=== PATIENT | female | born 1965 | race Caucasian/White ===

== ENCOUNTER 2025-07-03 15:01 | Inpatient (IN) | payer MEDICARE, SELFPAY ==
[2025-07-03] VITALS (16 sets, daily range): BP systolic 134–202; BP diastolic 68–108; PULSE 61–95; RESP 18; TEMP 36.6; O2SAT 91–99; BMI 35.4
--- NOTE | 2025-07-03 15:25 | EKG_ITS ---
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
[2025-07-03 15:47] LABS: Add Manual Diff / Slide Review NO; Hematocrit 42.6 % (36-46); Hemoglobin 15.2 g/dL (12.0-16.0); Lymphocytes Absolute Auto 1900 /uL (1100-4500); Mean Corpuscular HGB Conc 35.5 % (30-36); Mean Corpuscular Hemoglobin 32.9 PG (26-34); Mean Corpuscular Volume 92.6 fL (80-100); Platelet Count 285 X10^3/uL (150-400)
[2025-07-03 15:49] LABS: Alanine Aminotransferase 153 IU/L (<35); Albumin 4.6 g/dL (3.5-5.0); Albumin Globulin Ratio 1.4 (1.0-2.8); Alkaline Phosphatase 93 U/L (38-126); Blood Urea Nitrogen 12 mg/dL (7-17); Calcium 9.6 mg/dL (8.4-10.2); Carbon Dioxide 28 mmol/L (22-32); Chloride 106 mmol/L (98-107); Estimated Glomerular Filt Rate > 60 mL/min (>60); Globulin 3.3 g/dL (1.7-4.1); Glucose 103 mg/dL (70-99); HEMOLYSIS < 15 (0-50); Lipase 71 U/L (23-300); Potassium 3.8 mmol/L (3.4-5.1); Sodium 142 mmol/L (137-145); Total Protein 7.9 g/dL (6.3-8.2)
--- NOTE | 2025-07-03 16:16 | DI.CT.S_ITS ---
PROCEDURE: CT ABDOMEN PELVIS W CON INDICATIONS: abd pain TECHNIQUE: After the administration of intravenous contrast, axial sections acquired from the lung bases to the pubic symphysis. Coronal and sagittal reformats were performed. For radiation dose reduction, the following was used: automated exposure control, adjustment of mA and/or kV according to patient size. COMPARISON: None. FINDINGS: Image quality: Diagnostic. Lower Chest: No significant findings. ABDOMEN: Liver: No solid mass. Gallbladder: Cholelithiasis without wall thickening or adjacent fat stranding to suggest acute cholecystitis. Biliary ducts: No biliary dilation. Pancreas: No ductal dilation. Spleen: Size is within normal limits. Adrenal Glands: No adrenal nodules. Kidneys and Ureters: No hydronephrosis. No solid mass. No complex renal cystic lesion which requires follow up. Stomach and Bowel: There is a duodenal ulcer at the duodenal bulb, with likely very early micro perforation (series 2, image 47). The ulcer measures 1.5 centimeters in length. Adjacent fat stranding is present. Peritoneum: No abnormal intraperitoneal fluid. No free air. Ventral Wall: No significant ventral hernia. Abdominal Nodes: No retroperitoneal or mesenteric adenopathy by size criteria. Vessels: Aorta and inferior vena cava are normal in size. PELVIS: Pelvic Organs: Unremarkable. Bladder: No bladder wall thickening, accounting for underdistention. Pelvic Nodes: No enlarged lymph nodes. Miscellaneous: No inguinal hernias are seen. Bones: No aggressive osseous abnormality. IMPRESSION: 1.5 centimeter duodenal bulb ulcer with evidence of early micro perforation. Adjacent fat stranding is present. Cholelithiasis without wall thickening or adjacent fat stranding to suggest acute cholecystitis. Dictated by: Elias Quintana M.D. on 07/03/2025 at 15:38 Approved by: Elias Quintana M.D. on 07/03/2025 at 15:40
[2025-07-03] MEDS: KETOROLAC 30 MG/ML VIAL 15 MG IV (17:03)
[2025-07-03] MEDS: LACTATED RINGERS 1,000 ML 1000 ML IV (17:04)
[2025-07-03] MEDS: ONDANSETRON 4 MG/2 ML INJ IV (17:04)
--- NOTE | 2025-07-03 17:06 | ED.ABDPAIN ---
HPI - Abdominal Pain General Chief Complaint: Abdominal Pain Stated Complaint: mid/right abdomen pain Time Seen by Provider: 07/03/25 16:16 Source: patient Mode of arrival: Ambulatory History of Present Illness HPI narrative: 59-year-old female presents with epigastric pain radiating to the back worse in the past day but started about 2 weeks ago. Patient patient recently started on meloxicam for potential knee surgery. Patient denies chest pain, fever, chills, rectal bleeding, diarrhea, constipation, urinary complaints, shortness breath, cough, sore throat. Other than what is stated 14 point review of system is negative. Related Data Home Medications ?Medication ?Instructions ?Recorded ?Confirmed cetirizine 10 mg chewable tablet 10 mg PO DAILY 03/18/25 05/04/25 gabapentin 300 mg capsule 1,200 mg PO BID 03/18/25 05/04/25 Previous Rx's ?Medication ?Instructions ?Recorded meloxicam 15 mg tablet 15 mg PO DAILY #90 tabs 05/04/25 Allergies Allergy/AdvReac Type Severity Reaction Status Date / Time cephalexin Allergy Intermediate Nausea Verified 05/04/25 15:03 oxycodone Allergy Intermediate ITCHING Verified 05/04/25 15:03 Sulfa (Sulfonamide Allergy Intermediate Hives Verified 05/04/25 15:03 Antibiotics) sertraline Allergy Mild Insomnia Verified 05/04/25 15:03 Review of Systems Review of Systems ROS Unobtainable: All systems reviewed & are unremarkable except as noted in HPI and below Patient History Social History Smoking Status: Never smoker Smoking Status: Never smoker Exam Narrative Exam Narrative: GENERAL: [59] year old patient appears stated age. Well-developed patient, in mild distress. HEAD: Atraumatic. Normocephalic. EYES: Pupils equal round and reactive. Extraocular motions intact. No scleral icterus. No injection or drainage. ENT: Nose without bleeding, purulent drainage. Throat without erythema, tonsillar hypertrophy or exudate. Airway patent. NECK: Trachea midline. Non tender CARDIOVASCULAR: Regular rate and rhythm without murmurs, gallops, or rubs. RESPIRATORY: Clear to auscultation. Breath sounds equal bilaterally. No wheezes, rales, or rhonchi. GASTROINTESTINAL: Abdomen soft, epigastric TTP no r/r/g, nondistended. EXTREMITIES: No edema or joint tenderness. BACK: Nontender without deformity or crepitance. No flank tenderness. NEURO: AOx3. SKIN: No rash or erythema of visible areas Initial Vital Signs Initial Vital Signs: Vital Signs Temperature 97.8 F 07/03/25 15:06 Pulse Rate 71 07/03/25 15:06 Respiratory Rate 18 07/03/25 15:06 Blood Pressure 137/72 07/03/25 15:06 Pulse Oximetry 99 07/03/25 15:06 Oxygen Delivery Method Room Air 07/03/25 15:06 Course Orders Ordered: ED Orders 07/03/25 15:25 Complete Blood Count AUTO DIFF Stat Comprehensive Metabolic Panel Stat Lipase Stat EKG-12 Lead Stat 07/03/25 16:16 CT abdomen pelvis w con Stat Lactated Ringer's (Lactated Ringers) 1,000 mls @ 1,000 mls/hr IV BOLUS ONE Stop: 07/03/25 17:16 Last Admin: 07/03/25 17:04 Dose: 1,000 mls/hr Documented By: ROHITH Ondansetron HCl (Ondansetron 4 Mg/2 Ml Inj) 4 mg IV NOW PRN PRN Reason: Nausea And Vomiting Last Admin: 07/03/25 17:04 Dose: 4 mg Documented By: ROHITH Ondansetron HCl (Ondansetron 4 Mg Odt) 4 mg PO NOW PRN PRN Reason: Nausea And Vomiting Discontinued Medications Ketorolac Tromethamine (Ketorolac 30 Mg/Ml Vial) 15 mg IV NOW ONE Stop: 07/03/25 16:18 Last Admin: 07/03/25 17:03 Dose: 15 mg Documented By: ROHITH Vital Signs Vital signs: Vital Signs - 8 hr 07/03/25 15:06 Temperature 97.8 F Pulse Rate 71 Respiratory Rate 18 Blood Pressure 137/72 Pulse Oximetry 99 Oxygen Delivery Method Room Air MDM - Abdominal Pain Lab Data 07/03/25 15:25 07/03/25 15:25 Labs: Lab Results 07/03/25 Range/Units 15:25 WBC 6.7 (4.5-11.0) X10^3/uL RBC 4.61 (4.0-5.2) X10^6/uL Hgb 15.2 (12.0-16.0) g/dL Hct 42.6 (36-46) % MCV 92.6 (80-100) fL MCH 32.9 (26-34) PG MCHC 35.5 (30-36) % RDW 12.5 (11.6-14.8) % Plt Count 285 (150-400) X10^3/uL Neut % (Auto) 60.7 (50-75) % Lymph % (Auto) 28.4 (25-40) % [place] % (Auto) 6.1 (3-14) % Eos % (Auto) 3.7 (2-4) % Baso % (Auto) 1.1 (0-2) % Neut # (Auto) 4100 (7488-6252) /uL Lymph # (Auto) 1900 (8511-4938) /uL [place] # (Auto) 400 (0-900) /uL Eos # (Auto) 200 (0-450) /uL Baso # (Auto) 100 (0-100) /uL Sodium 142 (137-145) mmol/L Potassium 3.8 (3.4-5.1) mmol/L Chloride 106 (98-107) mmol/L Carbon Dioxide 28 (22-32) mmol/L BUN 12 (7-17) mg/dL Creatinine 0.71 (0.52-1.04) mg/dL Estimated GFR > 60 (>60) mL/min BUN/Creatinine Ratio 16.9 (6-22) Glucose 103 H (70-99) mg/dL Calcium 9.6 (8.4-10.2) mg/dL Total Bilirubin 0.7 (0.2-1.3) mg/dL AST 79 H (14-36) IU/L ALT 153 H (<35) IU/L Alkaline Phosphatase 93 (38-126) U/L Total Protein 7.9 (6.3-8.2) g/dL Albumin 4.6 (3.5-5.0) g/dL Globulin 3.3 (1.7-4.1) g/dL Albumin/Globulin Ratio 1.4 (1.0-2.8) Lipase 71 (23-300) U/L Point of care testing: Urine Dip Bedside Urine Glucose Negative Bedside Urine Bilirubin - Negative Bedside Urine Ketone - Negative Urine Specific [place] 1.005 Bedside Urine Occult Blood - Negative Bedside Urine pH 7.0 Bedside Urine Protein - Negative Bedside Urine Urobilinogen - Negative Bedside Urine Nitrite - Negative Bedside Urine Leukocytes - Negative Esterase Imaging Data CT scan - abdomen/pelvis: Radiologist's Impression: [address] [place] [id number] Scan Report Signed Patient: Asya Parrish MR#: [id number] : 1965 Acct:[id number] Age/Sex: 59 / F Date of Service: 07/03/25 Loc: ED Accession Number: [id number] Procedure: CT abdomen pelvis w con Ordering Provider: Matt Loomis D.O. PROCEDURE: CT ABDOMEN PELVIS W CON INDICATIONS: abd pain TECHNIQUE: After the administration of intravenous contrast, axial sections acquired from the lung bases to the pubic symphysis. Coronal and sagittal reformats were performed. For radiation dose reduction, the following was used: automated exposure control, adjustment of mA and/or kV according to patient size. COMPARISON: None. FINDINGS: Image quality: Diagnostic. Lower Chest: No significant findings. ABDOMEN: Liver: No solid mass. Gallbladder: Cholelithiasis without wall thickening or adjacent fat stranding to suggest acute cholecystitis. Biliary ducts: No biliary dilation. Pancreas: No ductal dilation. Spleen: Size is within normal limits. Adrenal Glands: No adrenal nodules. Kidneys and Ureters: No hydronephrosis. No solid mass. No complex renal cystic lesion which requires follow up. Stomach and Bowel: There is a duodenal ulcer at the duodenal bulb, with likely very early micro perforation (series 2, image 47). The ulcer measures 1.5 centimeters in length. Adjacent fat stranding is present. Peritoneum: No abnormal intraperitoneal fluid. No free air. Ventral Wall: No significant ventral hernia. Abdominal Nodes: No retroperitoneal or mesenteric adenopathy by size criteria. Vessels: Aorta and inferior vena cava are normal in size. PELVIS: Pelvic Organs: Unremarkable. Bladder: No bladder wall thickening, accounting for underdistention. Pelvic Nodes: No enlarged lymph nodes. Miscellaneous: No inguinal hernias are seen. Bones: No aggressive osseous abnormality. IMPRESSION: 1.5 centimeter duodenal bulb ulcer with evidence of early micro perforation. Adjacent fat stranding is present. Cholelithiasis without wall thickening or adjacent fat stranding to suggest acute cholecystitis. Dictated by: Elias Quinatna M.D. on 07/03/2025 at 15:38 Approved by: Elias Quintana M.D. on 07/03/2025 at 15:40 ECG Data Interpretation: NSR HR 68 Pr 150 QRS [address]-t wave change No previous EKG to compare MDM Narrative Medical decision making narrative: All lab work, vital signs, nurse triage note, medication list, previous ER visits, and all imaging studies reviewed. WBC 6.7 hemoglobin 15.2 platelets 285 CMP normal except AST 79 ALT 153 glucose [address] abdomen pelvis showed 1.5 cm duodenal bulb ulcer with evidence of early micro perforation adjacent fat stranding present. Cholelithiasis without wall thickening or adjacent fat stranding to suggest acute cholecystitis. Pt given fluids toradol zosyn ng tube and protonix per and to admit to his service.. Discharge Plan Departure Patient Disposition: Admitted As Inpatient Clinical Impression: Duodenal bulb ulcer perforation Admit Date/Time: 07/03/25 17:17 Admit Provider: Lucas Juares
[2025-07-03 17:20] LABS: INR 1.1 (0.9-1.3); Prothrombin Time 12.5 SECONDS (9.4-12.5)
[2025-07-03] MEDS: PIPERACILLIN/TAZO 4.5 GM in SODIUM CHLORIDE 0.9% 100 ML IV (17:25)
[2025-07-03] MEDS: PANTOPRAZOLE 40 MG VIAL IV (17:25)
--- NOTE | 2025-07-03 19:45 | DI.RAD.S_ITS ---
PROCEDURE: XR CHEST 1V INDICATIONS: NG placement TECHNIQUE: One view of the chest was acquired. COMPARISON: None. FINDINGS: Surgical changes and devices: Nasogastric tube has been placed. Distal tip and distal side port extends below the level of the diaphragm. Distal tip projects over the left upper quadrant. Overall, position appears appropriate. Lungs and pleura: Streaky bibasilar opacities likely representing atelectasis. Study was tailored for evaluation of nasogastric tube placement. Superior margins of the lungs are excluded. Mediastinum: Mediastinal contours appear normal. Heart size is normal. Bones and chest wall: No suspicious bony lesions. Overlying soft tissues appear unremarkable. IMPRESSION: Nasogastric tube in place and appears appropriately positioned. Dictated by: Max Agrawal M.D. on 07/03/2025 at 20:45 Approved by: Max Agrawal M.D. on 07/03/2025 at 20:47
[2025-07-04] VITALS (23 sets, daily range): BP systolic 130–150; BP diastolic 72–94; PULSE 63–79; RESP 16–20; TEMP 36.4–36.6; O2SAT 87–97; BMI 35.4
--- NOTE | 2025-07-04 00:15 | PC.NURSE ---
Dr Juares called for admission orders. Bridging orders received verbally per telephone and entered,
[2025-07-04] MEDS: LACTATED RINGERS 1,000 ML 125 ML IV ×2 (00:40→09:29)
--- NOTE | 2025-07-04 00:40 | PC.NURSE ---
pt ambulatory to BR without assistance, moved to a hospital bed for comfort, medicated for pain and lights dimmed
--- NOTE | 2025-07-04 04:00 | PC.NURSE ---
NG to low intermittent suction with brown colored drainage in right nare and IV to left AC intact without any s/s redness or swelling noted
[2025-07-04] MEDS: PIPERACILLIN/TAZO 3.375 GM in SODIUM CHLORIDE 0.9% 100 ML IV ×3 (04:31→20:41)
[2025-07-04 04:53] LABS: Add Manual Diff / Slide Review NO; Hematocrit 39.2 % (36-46); Hemoglobin 13.8 g/dL (12.0-16.0); Lymphocytes Absolute Auto 1500 /uL (1100-4500); Mean Corpuscular HGB Conc 35.1 % (30-36); Mean Corpuscular Hemoglobin 32.7 PG (26-34); Mean Corpuscular Volume 93.0 fL (80-100); Platelet Count 230 X10^3/uL (150-400)
[2025-07-04 05:02] LABS: Alanine Aminotransferase 125 IU/L (<35); Albumin 3.9 g/dL (3.5-5.0); Albumin Globulin Ratio 1.4 (1.0-2.8); Alkaline Phosphatase 71 U/L (38-126); Blood Urea Nitrogen 13 mg/dL (7-17); Calcium 8.7 mg/dL (8.4-10.2); Carbon Dioxide 27 mmol/L (22-32); Chloride 108 mmol/L (98-107); Estimated Glomerular Filt Rate > 60 mL/min (>60); Globulin 2.7 g/dL (1.7-4.1); Glucose 89 mg/dL (70-99); HEMOLYSIS < 15 (0-50); Potassium 3.8 mmol/L (3.4-5.1); Sodium 142 mmol/L (137-145); Total Protein 6.6 g/dL (6.3-8.2)
--- NOTE | 2025-07-04 08:43 | PC.NURSE ---
IV infustions continued upon transfer to floor
[2025-07-04] MEDS: ACETAMINOPHEN IV 1,000 MG/100 ML VIAL 400 MG IV (08:53)
[2025-07-04] MEDS: ONDANSETRON 4 MG/2 ML INJ IV (08:57)
--- NOTE | 2025-07-04 09:18 | DI.US.S_ITS ---
PROCEDURE: US ABDOMEN LIMITED INDICATIONS: gallstones on CT; ?cholecystitis TECHNIQUE: Real-time scanning was performed of the abdominal and retroperitoneal organs, with image documentation. COMPARISON: [facility], CT, CT ABDOMEN PELVIS W CON, 07/03/2025, 16:21. FINDINGS: Gallbladder: [place] gallstones. No wall thickening. No pericholecystic edema. Negative sonographic Ambrocio's sign. Biliary ducts: Intrahepatic bile ducts are non-dilated. Extrahepatic bile duct caliber measures 4.8 mm. Normal is 6-7 mm or less in diameter, or 10 mm or less post-cholecystectomy. Pancreas: Visualized portions of the pancreas are sonographically normal. Miscellaneous: No free abdominal fluid. IMPRESSION: Cholelithiasis without evidence of acute cholecystitis. Dictated by: Elias Quintana M.D. on 07/04/2025 at 13:56 Approved by: Elias Quintana M.D. on 07/04/2025 at 13:59
[2025-07-04] MEDS: PANTOPRAZOLE 40 MG VIAL IV (09:27)
--- NOTE | 2025-07-04 11:22 | PM.HP.IH.1 ---
History of Present Illness History of Present Illness Date Patient Seen: 07/04/25 Time Patient Seen: 11:36 Chief complaint: mid/right abdomen pain Narrative: 59yo F presents to ED with epigastric pain radiating into back. Pain is generally burning in nature and worsened with meals, within an hour. Pain comes in waves. Decreased appetite. No history of fatty food intolerance. Pain started 2 weeks ago, increased severity over past 2 nights. Started Meloxicam in April for insurance requirement before total knee replacement. Endorses several alcoholic drinks per week. Denies smoking. C/O nausea but no vomiting. No blood in stool. Had colonoscopy within the past year and was told next exam in 4 years due to polyps. CT demonstrates 1.5 centimeter duodenal bulb ulcer with evidence of early micro perforation. Adjacent fat stranding is present. Cholelithiasis without wall thickening or adjacent fat stranding to suggest acute cholecystitis. WBC normal, mild transaminase elevations. PFSH Social History household members: spouse Smoking Status: Never smoker alcohol intake: current Meds Home Medications and Allergies Home Medications ?Medication ?Instructions ?Recorded ?Confirmed ?Type cetirizine 10 mg chewable tablet 10 mg PO DAILY 03/18/25 05/04/25 History gabapentin 300 mg capsule 1,200 mg PO BID 03/18/25 05/04/25 History meloxicam 15 mg tablet 15 mg PO DAILY #90 tabs 05/04/25 05/04/25 Rx Allergies Allergy/AdvReac Type Severity Reaction Status Date / Time cephalexin Allergy Intermediate Nausea Verified 05/04/25 15:03 oxycodone Allergy Intermediate ITCHING Verified 05/04/25 15:03 Sulfa (Sulfonamide Allergy Intermediate Hives Verified 05/04/25 15:03 Antibiotics) sertraline Allergy Mild Insomnia Verified 05/04/25 15:03 Exam Vital Signs (past 8 hours): - 07/04/25 03:30 07/04/25 04:00 07/04/25 04:00 Temperature Pulse Rate 68 79 Respiratory Rate Blood Pressure 130/77 Pulse Oximetry 91 93 Oxygen Delivery Method Oxygen Flow Rate 07/04/25 04:30 07/04/25 05:00 07/04/25 05:30 Temperature Pulse Rate 69 71 73 Respiratory Rate Blood Pressure Pulse Oximetry 91 92 94 Oxygen Delivery Method Oxygen Flow Rate 07/04/25 06:00 07/04/25 06:33 07/04/25 07:00 Temperature Pulse Rate 74 78 63 Respiratory Rate Blood Pressure Pulse Oximetry 93 94 90 L Oxygen Delivery Method Oxygen Flow Rate 07/04/25 07:30 07/04/25 08:00 07/04/25 08:00 Temperature Pulse Rate 64 70 Respiratory Rate Blood Pressure 150/72 H Pulse Oximetry 91 Oxygen Delivery Method Room Air Oxygen Flow Rate 07/04/25 08:30 07/04/25 09:00 07/04/25 09:02 Temperature 97.8 F 97.8 F Pulse Rate 68 68 69 Respiratory Rate 18 16 18 Blood Pressure 150/87 H 149/94 H Pulse Oximetry 89 L 96 97 Oxygen Delivery Method Oxygen Flow Rate 0 0 Oxygen Delivery Method Room Air Oxygen Flow Rate 0 Narrative Exam Narrative: Const General: healthy appearing, comfortable and no acute distress Orientation: alert and oriented x3 HENMT Ears: hearing grossly normal bilaterally Eyes Visual Bell: normal visual bell by confrontation Conjunctivae: conjunctivae normal Sclera: sclerae normal EOM: EOM intact bilaterally Resp Effort & Inspection: normal respiratory effort and able to speak in complete sentences Cardio Rate: regular rate GI Palpation: soft, mild tenderness in epigastrium, no Ambrocio's sign Extrem General: no pedal edema and no calf tenderness Objective Labs 07/04/25 04:41 07/04/25 04:41 Labs: Laboratory Results - last 24 hr 07/03/25 07/04/25 15:25 04:41 WBC 6.7 6.0 RBC 4.61 4.22 Hgb 15.2 13.8 Hct 42.6 39.2 MCV 92.6 93.0 MCH 32.9 32.7 MCHC 35.5 35.1 RDW 12.5 12.5 Plt Count 285 230 Neut % (Auto) 60.7 59.7 Lymph % (Auto) 28.4 24.3 L [place] % (Auto) 6.1 7.0 Eos % (Auto) 3.7 5.8 H Baso % (Auto) 1.1 3.2 H Neut # (Auto) 4100 3600 Lymph # (Auto) 1900 1500 [place] # (Auto) 400 400 Eos # (Auto) 200 400 Baso # (Auto) 100 200 H PT 12.5 INR 1.1 Sodium 142 142 Potassium 3.8 3.8 Chloride 106 108 H Carbon Dioxide 28 27 BUN 12 13 Creatinine 0.71 0.60 Estimated GFR > 60 > 60 BUN/Creatinine Ratio 16.9 21.7 Glucose 103 H 89 Calcium 9.6 8.7 Total Bilirubin 0.7 0.6 AST 79 H 76 H ALT 153 H 125 H Alkaline Phosphatase 93 71 Total Protein 7.9 6.6 Albumin 4.6 3.9 Globulin 3.3 2.7 Albumin/Globulin Ratio 1.4 1.4 Lipase 71 Assessment & Plan Assessment and plan (1) Duodenal bulb ulcer perforation: Status: Acute (2) Cholelithiasis: Qualifiers: Cholelithiasis location: gallbladder Cholecystitis presence: without cholecystitis Biliary obstruction: without biliary obstruction Qualified Code(s): K80.20 - Calculus of gallbladder without cholecystitis without obstruction Status: Acute Plan Clinical picture consistent with duodenal ulcer with microperforation. Cholelithiasis, likely asymptomatic. Whereas it can be difficult to sort out symptoms relating to duodenal ulcer and cholelithiasis, her symptom complex is much more consistent with duodenal ulcer from NSAIDs/EtOH than gallstones. Will check ultrasound to evaluate gallbladder. NGT for now for microperforation. Plan contrast study tomorrow and start clears if negative. Plan to add oral carafate and H pylori regimen tomorrow if UGI study negative for leak. Treat gallstones conservatively for now unless develops symptoms of cholecystitis or biliary obstruction. Time-Based Coding :: [TOTAL MINUTES] spent with patient and on the chart (including review of chart, obtaining history, exam, reviewing outside data, placing orders, documenting exam and treatment plan, and counseling patient) on [DATE]. 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
[2025-07-04] MEDS: PROCHLORPERAZINE 10 MG/2 ML VIAL 5 MG IV (12:40)
[2025-07-04] MEDS: DEXTROSE 50 % IN WATER 25 GM/50 ML SYRINGE TUBE (20:40)
[2025-07-04] MEDS: DEXTROSE 5%-0.9% NS 1,000 ML 125 ML IV (20:42)
[2025-07-05] VITALS: BP 120/80; PULSE 65; RESP 16; TEMP 36.9; O2SAT 96
[2025-07-05] MEDS: PIPERACILLIN/TAZO 3.375 GM in SODIUM CHLORIDE 0.9% 100 ML IV (03:30)
[2025-07-05 04:00] VITALS: BP 119/73; PULSE 56; RESP 20; TEMP 36.6; O2SAT 96
[2025-07-05] MEDS: DEXTROSE 5%-0.9% NS 1,000 ML 125 ML IV ×3 (04:39→21:24)
[2025-07-05 05:23] LABS: Add Manual Diff / Slide Review NO; Hematocrit 36.0 % (36-46); Hemoglobin 12.9 g/dL (12.0-16.0); Lymphocytes Absolute Auto 1600 /uL (1100-4500); Mean Corpuscular HGB Conc 35.8 % (30-36); Mean Corpuscular Hemoglobin 33.0 PG (26-34); Mean Corpuscular Volume 92.2 fL (80-100); Platelet Count 229 X10^3/uL (150-400)
[2025-07-05 05:36] LABS: Alanine Aminotransferase 110 IU/L (<35); Albumin 3.6 g/dL (3.5-5.0); Albumin Globulin Ratio 1.4 (1.0-2.8); Alkaline Phosphatase 65 U/L (38-126); Blood Urea Nitrogen 14 mg/dL (7-17); Calcium 8.2 mg/dL (8.4-10.2); Carbon Dioxide 29 mmol/L (22-32); Chloride 107 mmol/L (98-107); Estimated Glomerular Filt Rate > 60 mL/min (>60); Globulin 2.5 g/dL (1.7-4.1); Glucose 112 mg/dL (70-99); HEMOLYSIS < 15 (0-50); Potassium 3.6 mmol/L (3.4-5.1); Sodium 140 mmol/L (137-145); Total Protein 6.1 g/dL (6.3-8.2)
--- NOTE | 2025-07-05 06:44 | P.PN_ITS ---
Subjective Subjective Date Patient Seen: 07/05/25 Time Patient Seen: 06:44 Interval history: No new c/o Stable overnight AVSS NG 150/shift, non-bloody Exam Vital Signs (past 8 hours): - 07/05/25 00:00 07/05/25 04:00 Temperature 98.4 F 97.8 F Pulse Rate 65 56 L Respiratory Rate 16 20 Blood Pressure 120/80 119/73 Pulse Oximetry 96 96 Oxygen Flow Rate 1.5 1 Oxygen Delivery Method Room Air Oxygen Flow Rate 1 Narrative Exam Narrative: Const General: comfortable and no acute distress Orientation: alert and oriented x3 Resp Effort & Inspection: normal respiratory effort and able to speak in complete sentences Cardio Rate: regular rate GI Palpation: soft, non-peritoneal, epigastric tenderness, stable exam Extrem General: no pedal edema and no calf tenderness Objective Labs 07/05/25 05:06 07/05/25 05:06 Labs: Laboratory Results - last 24 hr 07/04/25 07/04/25 07/05/25 20:19 20:59 03:04 WBC RBC Hgb Hct MCV MCH MCHC RDW Plt Count Neut % (Auto) Lymph % (Auto) [place] % (Auto) Eos % (Auto) Baso % (Auto) Neut # (Auto) Lymph # (Auto) [place] # (Auto) Eos # (Auto) Baso # (Auto) Sodium Potassium Chloride Carbon Dioxide BUN Creatinine Estimated GFR BUN/Creatinine Ratio Glucose POC Whole Bld Glucose 65 L 191 H D 107 H Calcium Total Bilirubin AST ALT Alkaline Phosphatase Total Protein Albumin Globulin Albumin/Globulin Ratio 07/05/25 05:06 WBC 6.4 RBC 3.90 L Hgb 12.9 Hct 36.0 MCV 92.2 MCH 33.0 MCHC 35.8 RDW 12.4 Plt Count 229 Neut % (Auto) 58.2 Lymph % (Auto) 25.0 [place] % (Auto) 7.4 Eos % (Auto) 8.0 H Baso % (Auto) 1.4 Neut # (Auto) 3700 Lymph # (Auto) 1600 [place] # (Auto) 500 Eos # (Auto) 500 H Baso # (Auto) 100 Sodium 140 Potassium 3.6 Chloride 107 Carbon Dioxide 29 BUN 14 Creatinine 0.59 Estimated GFR > 60 BUN/Creatinine Ratio 23.7 H Glucose 112 H POC Whole Bld Glucose Calcium 8.2 L Total Bilirubin 0.4 AST 62 H ALT 110 H Alkaline Phosphatase 65 Total Protein 6.1 L Albumin 3.6 Globulin 2.5 Albumin/Globulin Ratio 1.4 PFSH Social History household members: spouse Smoking Status: Never smoker alcohol intake: current Assessment & Plan Assessment and plan (1) Duodenal bulb ulcer perforation: Status: Acute (2) Cholelithiasis: Qualifiers: Cholelithiasis location: gallbladder Cholecystitis presence: without cholecystitis Biliary obstruction: without biliary obstruction Qualified Code(s): K80.20 - Calculus of gallbladder without cholecystitis without obstruction Status: Acute Plan UGI today to r/o leak If no leak, plan to d/c NGT and start clears Plan Carafate, Hpylori empiric treatment U/S without evidence for cholecystitis, monitor for change in symptoms WBC 6 Time-Based Coding :: [TOTAL MINUTES] spent with patient and on the chart (including review of chart, obtaining history, exam, reviewing outside data, placing orders, documenting exam and treatment plan, and counseling patient) on [DATE]. Quality VTE Deep Vein Thrombosis/Pulmonary Embolism Present on Admission: No IH PROFEE Scallop Cutter Document charge(s): Yes Charge Codes Subsequent inpatient/observation care: [id number]
[2025-07-05 08:00] VITALS: BP 150/80; PULSE 67; RESP 13; TEMP 36.7; O2SAT 93
--- NOTE | 2025-07-05 08:00 | DI.RAD.S_ITS ---
PROCEDURE: FL UPPER GI SERIES INDICATIONS: CT with duodenal ulcer with microperf; ?leak COMPARISON: [facility], CT, CT ABDOMEN PELVIS W CON, 07/03/2025, 16:21. Findings/technique: 120 Gastrografin cc was initially given by gastrostomy tube prior to the start of the procedure. Contrast was noted within the stomach and duodenal bulb. No contrast was in the distal duodenum or small bowel. The patient was placed into right lateral decubitus position and an additional 30 mL of contrast was given. Patient remained in this position until contrast entered the horizontal portion of the duodenum and then returned to the supine position. Contrast was observed to transit to the proximal jejunum. A large ulceration corresponding to the finding on CT at the duodenal bulb is noted, filled with contrast. There is however no leakage of contrast beyond bowel wall. IMPRESSION: Duodenal bulb ulcer with no leak. Dictated by: Domo Metzger M.D. on 07/05/2025 at 14:27 Approved by: Domo Metzger M.D. on 07/05/2025 at 14:33
[2025-07-05] MEDS: PANTOPRAZOLE 40 MG VIAL IV (08:12)
[2025-07-05] MEDS: PROCHLORPERAZINE 10 MG/2 ML VIAL 5 MG IV (10:59)
[2025-07-05 12:00] VITALS: BP 138/79; PULSE 58; RESP 14; TEMP 36.5; O2SAT 94
[2025-07-05] MEDS: ONDANSETRON 4 MG/2 ML INJ IV (13:34)
[2025-07-05] MEDS: CLARITHROMYCIN 500 MG TABLET PO (13:38)
[2025-07-05] MEDS: AMOXICILLIN 250 MG CAPSULE 1000 MG PO (13:38)
[2025-07-05 16:00] VITALS: BP 140/80; PULSE 70
--- NOTE | 2025-07-05 16:17 | CM.DANOTE ---
Patient is a 59 yo female who was admitted on 07/03/25 for Mariann and perf. Pt has MCR for insurance and her PCP is Angela Garcia. EMR was reviewed. Per Surgeon, pt with cholelithiasis and perf and currently has NGT and plan of gastrogafin today and IV Abx and pending results possible start on clear liquids. Pt able to wean to room air today. Per RN, pt has been independent in room and no concerns noted. Pt resides on [place] with spouse and is independent with ADLs at baseline and denies any hx of HH or SNF. Pt preference is to d/c home when stable and confirms spouse can provide transport at d/c. Plan: SW to follow closely for pt progress with advancing diet and confirm safe plan of home and any further identified discharge planning needs. BRYANT Winn
[2025-07-05] MEDS: SUCRALFATE 1 GM/10 ML ORAL SUSP PO ×2 (17:06→20:36)
[2025-07-05 20:00] VITALS: BP 150/88; PULSE 71; RESP 20; TEMP 36.7; O2SAT 97
[2025-07-05] MEDS: GABAPENTIN 600 MG TABLET 1200 MG PO (20:36)
[2025-07-05] MEDS: PANTOPRAZOLE DR 40 MG TABLET PO (20:36)
[2025-07-06 06:00] VITALS: BP 131/89; PULSE 57; RESP 12; TEMP 37; O2SAT 94
[2025-07-06] MEDS: PANTOPRAZOLE DR 40 MG TABLET PO (06:14)
--- NOTE | 2025-07-06 06:55 | PM.PN.IH.1 ---
Subjective Subjective Date Patient Seen: 07/06/25 Time Patient Seen: 06:56 Interval history: NG out yesterday Tolerated liquids No leak on UGI Did not tolerate H pylori abx, nausea Liquid stool after oral contrast Exam Vital Signs (past 8 hours): - 07/06/25 06:00 Temperature 98.6 F Pulse Rate 57 L Respiratory Rate 12 Blood Pressure 131/89 Pulse Oximetry 94 Oxygen Flow Rate 0 Oxygen Delivery Method CPAP Oxygen Flow Rate 0 Narrative Exam Narrative: Const General: healthy appearing, comfortable and no acute distress Orientation: alert and oriented x3 Resp Effort & Inspection: normal respiratory effort and able to speak in complete sentences Cardio Rate: regular rate GI Palpation: soft (NT) Extrem General: no pedal edema and no calf tenderness Objective Labs 07/05/25 05:06 07/05/25 05:06 Labs: Laboratory Results - last 24 hr 07/05/25 07/05/25 07/05/25 09:21 17:02 19:46 POC Whole Bld Glucose 90 136 H 159 H PFSH Social History household members: spouse Smoking Status: Never smoker alcohol intake: current Assessment & Plan Assessment and plan (1) Duodenal bulb ulcer perforation: Status: Acute (2) Cholelithiasis: Qualifiers: Cholelithiasis location: gallbladder Cholecystitis presence: without cholecystitis Biliary obstruction: without biliary obstruction Qualified Code(s): K80.20 - Calculus of gallbladder without cholecystitis without obstruction Status: Acute Plan Advance diet to bland Continue PPI/Carafate Hold H pylori abx for now Possible home later today Will need EGD in 8 weeks U/S without evidence for cholecystitis, symptoms likely more related to DU Time-Based Coding :: [TOTAL MINUTES] spent with patient and on the chart (including review of chart, obtaining history, exam, reviewing outside data, placing orders, documenting exam and treatment plan, and counseling patient) on [DATE]. Quality VTE Deep Vein Thrombosis/Pulmonary Embolism Present on Admission: No [facility] PROFEE [employer] Se[employer] Stitcher Document charge(s): Yes Charge Codes Subsequent inpatient/observation care: [id number]
[2025-07-06 07:25] VITALS: BP 151/96; PULSE 67; RESP 17; TEMP 37.1; O2SAT 94
[2025-07-06] MEDS: SUCRALFATE 1 GM/10 ML ORAL SUSP PO ×2 (08:28→12:57)
[2025-07-06] MEDS: ACETAMINOPHEN 325 MG TABLET 650 MG PO (10:18)
[2025-07-06 11:49] LABS: Clostridium Difficile Tox PCR Negative for C. diff (Negative)
[2025-07-06 13:50] VITALS: BP 145/95; PULSE 75; RESP 18; TEMP 36.8; O2SAT 97
--- NOTE | 2025-07-06 13:52 | PM.DS.IH.1 ---
History of Present Illness History of Present Illness Date Patient Seen: 07/06/25 Chief complaint: mid/right abdomen pain Narrative: 59yo F presents to ED with epigastric pain radiating into back. Pain is generally burning in nature and worsened with meals, within an hour. Pain comes in waves. Decreased appetite. No history of fatty food intolerance. Pain started 2 weeks ago, increased severity over past 2 nights. Started Meloxicam in April for insurance requirement before total knee replacement. Endorses several alcoholic drinks per week. Denies smoking. C/O nausea but no vomiting. No blood in stool. Had colonoscopy within the past year and was told next exam in 4 years due to polyps. CT demonstrates 1.5 centimeter duodenal bulb ulcer with evidence of early micro perforation. Adjacent fat stranding is present. Cholelithiasis without wall thickening or adjacent fat stranding to suggest acute cholecystitis. WBC normal, mild transaminase elevations. Discharge Providers Provider Date of admission: 07/03/25 17:17 Discharge Date: 07/06/25 Primary care physician: Angela Garcia PA-C Discharge provider: Lucas Juares MD Summary Hospital Course Discharge Diagnosis: Duodenal ulcer with microperforation Hospital Course: Patient admitted through ED with abdominal pain and large duodenal ulcer with microperforation. Admitted for IV abx, bowel rest, NG decompression. Oral contrast study done next day demonstrated no leak so NG was discontinued and clear liquids started. By 07/06, she was tolerating regular food. She was treated with BID PPI and carafate. She did not tolerate H pylori antibiotics. Will prescribe to start outpatient when nausea improves. Status at Discharge Functional status at discharge: independent ambulation Overall status at discharge: patient is progressing back to baseline Time Spent with Patient Time spent: Greater than 30 minutes Exam Vital Signs (past 8 hours): - 07/06/25 06:00 07/06/25 07:25 Temperature 98.6 F 98.7 F Pulse Rate 57 L 67 Respiratory Rate 12 17 Blood Pressure 131/89 151/96 H Pulse Oximetry 94 94 Oxygen Flow Rate 0 0 Oxygen Delivery Method CPAP Oxygen Flow Rate 0 Narrative Exam Narrative: Const General: healthy appearing, comfortable and no acute distress Orientation: alert and oriented x3 HENMT Ears: hearing grossly normal bilaterally Eyes Visual Barlow: normal visual barlow by confrontation Conjunctivae: conjunctivae normal Sclera: sclerae normal EOM: EOM intact bilaterally Resp Effort & Inspection: normal respiratory effort and able to speak in complete sentences Cardio Rate: regular rate GI Palpation: soft, mild epigastric tenderness, non peritoneal exam Extrem General: no pedal edema and no calf tenderness Objective Labs 07/05/25 05:06 07/05/25 05:06 Labs: Laboratory Results - last 24 hr 07/05/25 07/05/25 07/06/25 17:02 19:46 07:44 POC Whole Bld Glucose 136 H 159 H 92 C. difficile Tox (PCR) 07/06/25 07/06/25 09:30 11:27 POC Whole Bld Glucose 125 H C. difficile Tox (PCR) Negative for c. diff PFS Social History household members: spouse Smoking Status: Never smoker alcohol intake: current Discharge Assessment & Plan Assessment and Plan Assessment: Duodenal ulcer with microperforation Plan of Treatment: Home today See discharge instructions Discharge Plan Discharge Plan Patient Disposition: Home Provider Discharge Comment: [place] diet, no carbonation, no spicy or acidic foods Do not take NSAIDs (meloxicam, aspirin, ibuprofen, Aleve). You can take Tylenol Take Omeprazole twice daily (acid suppression) and carafate four times daily (coats ulcer) Take the 3 antibiotics for H pylori when your nausea improves and you can keep them down Return with severe abdominal pain, Fever>101, vomiting Shower and bath okay Please schedule a telehealth visit in two weeks Plan EGD (stomach scope) after 8 weeks of healing Discharge orders & Medications Prescriptions: New sucralfate 100 mg/mL Suspension 1 g PO QID Qty: 400 1RF pantoprazole 40 mg Tablet,Delayed Release (Dr/Ec) 40 mg PO 0700,2100 Qty: 60 6RF ondansetron 4 mg Tablet,Disintegrating 4 mg PO NOW PRN (Reason: Nausea And Vomiting) Qty: 20 0RF amoxicillin 500 mg tablet 1,000 mg PO BID Qty: 28 0RF metronidazole 500 mg tablet 500 mg PO QID Qty: 56 0RF clarithromycin 500 mg tablet 500 mg PO BID Qty: 28 0RF Continued gabapentin 300 mg capsule 1,200 mg PO BID cetirizine 10 mg tablet,chewable 10 mg PO DAILY Follow up/Referrals: Angela Garcia PA-C [Primary Care Provider, Medical] Diet/Activity/Treatments Diet comment: [place] diet Visit Report/Discharge Packet Stand Alone Forms: [employer], Patient Portal/API, Stroke Signs & Symptoms, Influenza Vaccine Info, Notice of Privacy Practices, Inpatient vs Outpatient, Pneumococcal Vaccine Info, Pt. Rights & Responsibilities Discharge Data Primary Care Provider: Angela Garcia VTE Deep Vein Thrombosis/Pulmonary Embolism Present on Admission: No [facility] PROFEE Charge Codes Discharge inpatient/observation: [id number]
== END 2025-07-06 14:30 | disposition home or self-care (01) | DRG 382 ==
LOC: ED 17:18 → AC 23:51
PROVIDERS: Admitting Provider Surgery; Emergency Provider Family Medicine; PCP Physician Assistant; Referring Provider Internal Medicine; Visit Provider Surgery
DX: K26.1 Acute duodenal ulcer with perforation (principal); K80.20 Calculus of gallbladder without cholecystitis without obstruction; G62.9 Polyneuropathy, unspecified
CPT/HCPCS: 36415; 71045; 74177; 74240; 76705; 80053; 81003; 82962; 83690; 85025; 85610; 87493; 93005; 96365; 96375; 96376; 99284; J0131; J0780; J1171; J1885; J2060; J2405; J2470; J2543; J7042; J7050; J7120; Q9967